=== PATIENT | female | born 1995 | race Caucasian/White ===

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

== ENCOUNTER 2017-01-21 14:39 | Emergency (ER) | payer MEDICAID ==
[~2017-01-21] VITALS: Ht 162.6 cm; Wt 58.0 kg
[~2017-01-21 14:39] MED LIST changes: -BACT800T5 PO; -CIPR-9 PO; -IBUP-232 PO; +OSEL75 PO; -TRAM50TA PO
[2017-01-21 14:40] VITALS: BP 124/60; PULSE 82; RESP 20; TEMP 98.8; O2SAT 100
[2017-01-21 16:00] VITALS: BP 107/64; PULSE 75; RESP 16; O2SAT 100
--- NOTE | 2017-01-21 16:25 | PD ---
HPI Chief Complaint: Cover Cutter Problem/Complaint Time Seen by Provider: 16:09 Travel History International Travel<30 days: No Contact w/Intl Traveler<30days: No Traveled to known affect area: No History of Present Illness HPI 21-year-old female presents to the emergency department for evaluation of pelvic pain and dysuria 3 days. Patient denies fever or chills. LMP 9/7. Patient denies fever, chills, abdominal pain, nausea or vomiting, vaginal discharge, vaginal bleeding. Symptoms severity moderate, no aggravating or alleviating factors. Pain severity 6/10. PFSH Past Medical History Medical History: Denies Significant Hx Hx Anticoagulant Therapy: No Diabetes: No Diminished Hearing: No Genitourinary: Yes (UTI) Immunizations Current: Yes Tetanus Vaccination: Unknown Influenza Vaccination: No (UNKNOWN) ?: Not LMP: 01/12/17 : 0 Para: 0 Miscarriage: 0 : 0 Past Surgical History Surgical History: No Previous Surgery Social History Alcohol Use: No Tobacco Use: No Substance Use: No Allergies-Medications (Allergen,Severity, Reaction): Coded Allergies: No Known Allergies (Unverified , 01/21/17) Reported Meds & Prescriptions Reported Meds & Active Scripts Active No Active Prescriptions or Reported Medications Review of Systems Except as stated in HPI: all other systems reviewed are Neg Physical Exam Narrative GENERAL: Well-nourished, well-developed patient. SKIN: Focused skin assessment warm/dry. HEAD: Normocephalic. EYES: No scleral icterus. No injection or drainage. NECK: Supple, trachea midline. No JVD or lymphadenopathy. CARDIOVASCULAR: Regular rate and rhythm without murmurs, gallops, or rubs. RESPIRATORY: Breath sounds equal bilaterally. No accessory muscle use. GASTROINTESTINAL: Positive suprapubic tenderness .Abdomen soft, nondistended. MUSCULOSKELETAL: No cyanosis, or edema. GENITOURINARY: External genitalia without lesions. Moderate amount of whitish yellow discharge within the vaginal vault. Cervix is friable. Cervical os closed. Cervical motion tenderness. No adnexal mass or tenderness. BACK: Nontender without obvious deformity. No CVA tenderness. Data Data Last Documented VS Vital Signs Date Time Temp Pulse Resp B/P (MAP) Pulse Ox O2 Delivery O2 Flow Rate FiO2 01/21/17 16:00 75 16 107/64 (78) 100 Room Air 01/21/17 14:40 98.8 Orders Orders Ed Urine Pregnancytest Poc (01/21/17 16:10) Urinalysis - C+S If Indicated (01/21/17 16:11) Gc And Chlamydia Pcr (01/21/17 16:20) Wet Prep Profile (01/21/17 16:20) Azithromycin Powd Pack (Zithromax Powd P (01/21/17 18:00) Rocephin 250mg Vial Im X 1 (01/21/17 18:00) Lidocaine 1% Inj (50 Ml) (Xylocaine 1% I (01/21/17 18:00) Labs Laboratory Tests Test 01/21/17 16:20 Urine Color YELLOW Urine Turbidity HAZY Urine pH 7.0 Urine Specific [place] 1.014 Urine Protein NEG mg/dL Urine Glucose (UA) NEG mg/dL Urine Ketones NEG mg/dL Urine Occult Blood NEG Urine Nitrite NEG Urine Bilirubin NEG Urine Urobilinogen LESS THAN 2.0 MG/DL Urine Leukocyte Esterase NEG Urine RBC 2 /hpf Urine WBC 1 /hpf Urine Squamous Epithelial Cells 2 /hpf Urine Amorphous Sediment RARE Microscopic Urinalysis Comment CULT NOT INDICATED Clue Cells (Wet Prep) NONE SEEN Vaginal Trichomonas (Wet Prep) NONE SEEN Vaginal Yeast (Wet Prep) NONE SEEN MDM Medical Decision Making Medical Screen Exam Complete: Yes Emergency Medical Condition: Yes Differential Diagnosis UTI, cervicitis, PID Narrative Course 21-year-old female since emergency department for evaluation of vaginal discomfort 3 days. Patient reports similar symptoms in the past with UTI. Patient denies fever, chills, abdominal pain. Patient is a sexually active with one partner and does not use protection. On exam patient has moderate amount of discharge in vaginal vault, cervical friability, and cervical motion tenderness. UA: Negative for infection Wet prep: Negative for Trichomonas, negative for clue cells, negative for yeast GC chlamydia: Pending Patient be treated for cervicitis. Return precautions discussed. Patient verbalizes understanding and agrees to plan. Diagnosis Primary Impression: Cervicitis Referrals: Primary Care Physician Additional Instructions: Take medication as prescribed. 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 Return to emergency department if he developed new or worsening symptoms. Scripts No Active Prescriptions or Reported Meds Disposition: 01 DISCHARGE HOME Condition: Stable Madison Sue Jan 21, 2017 16:25
[2017-01-21 17:02] LABS: BLOOD, URINE NEG (NEG); COMMENT (UR) CULT NOT INDICATED; CULTURE IF INDICATED CULT NOT INDICATED; GLUCOSE,URINE NEG (NEG); KETONE, URINE NEG (NEG); NITRITE,URINE NEG (NEG); SQUAMOUS EPITHELIAL CELL URINE 2 /hpf (0-5); URINE COLOR YELLOW (YELLW/STRAW)
[2017-01-21] MEDS ORDERED: cefTRIAXone 250 MG VIAL IM ONE (18:00)
[2017-01-21] MEDS ORDERED: LIDOCAINE HCL 1% 50 ML VIAL IM ONE (18:00)
[2017-01-21] MEDS ORDERED: AZITHROMYCIN PWD FOR SUSP 1 GM PACKET PO ONE (18:00)
[2017-01-21 19:13] LABS: CHLAMYDIA PCR NOT DETECTED (NOT DETECT); NEISSERIA PCR NOT DETECTED (NOT DETECT)
== END 2017-01-21 19:07 | disposition home or self-care (01) ==
LOC: NEPD 14:39
DX: N72 Inflammatory disease of cervix uteri (principal)
CPT/HCPCS: 81001; 84703; 87210; 87491; 87591; 96372; 99284; J0696

== ENCOUNTER 2017-04-05 03:47 | Emergency (ER) | payer MEDICAID, OTHER ==
[~2017-04-05] VITALS: Ht 160 cm; Wt 58.0 kg
[2017-04-05] MEDS ORDERED: IOHEXOL 350 MG/ML 10 ML VIAL (for RAD DIAG) IVCONTRAST ONE (03:48)
[2017-04-05 03:49] VITALS: BP 121/66; PULSE 104; RESP 16; TEMP 98.4; O2SAT 100
--- NOTE | 2017-04-05 04:29 | PD ---
HPI Chief Complaint: Abdominal Pain Time Seen by Provider: 04:15 Travel History International Travel<30 days: No Contact w/Intl Traveler<30days: No Traveled to known affect area: No History of Present Illness HPI The patient is a 21 year old female who presents to the [facility] emergency department with a history of lower abdominal pain that awoke from her sound sleep at 3AM. It is coming and going. It is sharp and dull in character. She has had nausea without vomiting. Her last BM was yesterday. On review of systems otherwise, the patient denies having any recent fevers, cough, congestion, neck pain, chest pain, shortness of breath, diarrhea, urinary symptoms, or neurologic symptoms. 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 PFSH Past Medical History Narrative Medical The patient's past medical history is reportedly None. Hx Anticoagulant Therapy: No Diabetes: No Diminished Hearing: No Genitourinary: Yes (UTI) Immunizations Current: Yes Tetanus Vaccination: Unknown Influenza Vaccination: No ?: Unknown : 0 Para: 0 Miscarriage: 0 : 0 Past Surgical History Narrative Surgical The patient's past surgical history is reportedly None. Social History Alcohol Use: No Tobacco Use: No Substance Use: No Allergies-Medications (Allergen,Severity, Reaction): Coded Allergies: No Known Allergies (Unverified Adverse Reaction, Unknown, 04/05/17) Reported Meds & Prescriptions Reported Meds & Active Scripts Active Ibuprofen 600 Mg Tab 600 Mg PO Q6H PRN Review of Systems Except as stated in HPI: all other systems reviewed are Neg General / Constitutional: No: Fever Eyes: No: Visual changes HENT: No: Headaches Cardiovascular: No: Chest Pain or Discomfort Respiratory: No: Shortness of Breath Gastrointestinal: Positive: Nausea, Abdominal Pain, No: Vomiting, Diarrhea, Changes in Bowel Habits, Indigestion, Loss of Appetite Genitourinary: No: Dysuria Musculoskeletal: No: Pain Skin: No Rash Neurologic: No: Weakness Psychiatric: No: Depression Endocrine: No: Polydipsia Hematologic/Lymphatic: No: Easy Bruising Physical Exam Narrative General: The patient is a well-developed well-nourished female in no acute distress Head and Neck exam: Head is normocephalic atraumatic. Eyes: EOMI, pupils are equal round and reactive to light. Nose: Midline septum with pink mucous membranes Mouth: Dentition unremarkable. Moist mucus membranes. Posterior oropharynx is not erythematous. No tonsillar hypertrophy. Uvula midline. Airway patent. Neck: No palpable lymphadenopathy. No nuchal rigidity. No thyromegaly. Cardiovascular: Regular rate and rhythm without murmurs, gallops, or rubs. Lungs: Clear to auscultation bilaterally. No wheezes, rhonchi, or rales. Abdomen: Soft, with tenderness on palpation of bilateral lower quadrants of the abdomen, worse in the right lower quadrant compared to the left. No guarding, rebound, or rigidity. Normal bowel sounds are audible. The patient does have tenderness on palpation of McBurney's point. Negative Montilla's sign. Extremities: No clubbing, cyanosis, or edema. 2+ pulses in all 4 extremities. No calf tenderness on palpation. Back: No spinous process tenderness to palpation. No costovertebral angle tenderness to palpation. Neurologic Exam: Grossly normal. Skin Exam: No rash noted. Intact skin that is warm and dry. Data Data Last Documented VS Vital Signs Date Time Temp Pulse Resp B/P (MAP) Pulse Ox O2 Delivery O2 Flow Rate FiO2 04/05/17 09:29 80 18 124/76 (92) 97 04/05/17 03:49 98.4 Room Air Orders Orders Complete Blood Count With Diff (04/05/17 04:47) Comprehensive Metabolic Panel (04/05/17 04:47) C-Reactive Protein (Crp) (04/05/17 04:47) Lipase (04/05/17 04:47) Urinalysis - C+S If Indicated (04/05/17 04:47) Iv Access Insert/Monitor (04/05/17 04:47) Ecg Monitoring (04/05/17 04:47) Oximetry (04/05/17 04:47) Ed Urine Pregnancytest Poc (04/05/17 04:47) Sodium Chlor 0.9% 1000 Ml Inj (Ns 1000 M (04/05/17 05:00) Ondansetron Inj (Zofran Inj) (04/05/17 05:00) Ketorolac Inj (Toradol Inj) (04/05/17 05:00) Ct Abd/Pel W Iv Contrast(Rout) (04/05/17 05:30) Oral Contrast - Adult (04/05/17 06:55) Diatrizoate Liq (Md Rainey Liq) (04/05/17 07:22) Iohexol 350 Inj (Omnipaque 350 Inj) (04/05/17 03:48) Ed Discharge Order (04/05/17 09:03) Labs Laboratory Tests Test 04/05/17 04:40 White Blood Count 6.5 TH/MM3 Red Blood Count 5.01 MIL/MM3 Hemoglobin 14.6 GM/DL Hematocrit 43.2 % Mean Corpuscular Volume 86.2 FL Mean Corpuscular Hemoglobin 29.1 PG Mean Corpuscular Hemoglobin Concent 33.7 % Red Cell Distribution Width 13.5 % Platelet Count 283 TH/MM3 Mean Platelet Volume 8.7 FL Neutrophils (%) (Auto) 47.6 % Lymphocytes (%) (Auto) 34.8 % Monocytes (%) (Auto) 12.7 % Eosinophils (%) (Auto) 4.2 % Basophils (%) (Auto) 0.7 % Neutrophils # (Auto) 3.1 TH/MM3 Lymphocytes # (Auto) 2.3 TH/MM3 Monocytes # (Auto) 0.8 TH/MM3 Eosinophils # (Auto) 0.3 TH/MM3 Basophils # (Auto) 0.0 TH/MM3 CBC Comment DIFF FINAL Differential Comment Urine Color YELLOW Urine Turbidity HAZY Urine pH 6.0 Urine Specific [place] 1.026 Urine Protein TRACE mg/dL Urine Glucose (UA) NEG mg/dL Urine Ketones NEG mg/dL Urine Occult Blood NEG Urine Nitrite NEG Urine Bilirubin NEG Urine Urobilinogen LESS THAN 2.0 MG/DL Urine Leukocyte Esterase TRACE Urine RBC 2 /hpf Urine WBC 1 /hpf Urine Squamous Epithelial Cells 8 /hpf Urine Bacteria RARE /hpf Urine Mucus MOD /lpf Microscopic Urinalysis Comment CULT NOT INDICATED Blood Urea Nitrogen 10 MG/DL Creatinine 0.61 MG/DL Random Glucose 84 MG/DL Total Protein 8.0 GM/DL Albumin 4.3 GM/DL Calcium Level 9.0 MG/DL Alkaline Phosphatase 89 U/L Aspartate Amino Transf (AST/SGOT) 25 U/L Alanine Aminotransferase (ALT/SGPT) 26 U/L Total Bilirubin 0.4 MG/DL Sodium Level 138 MEQ/L Potassium Level 3.8 MEQ/L Chloride Level 104 MEQ/L Carbon Dioxide Level 26.2 MEQ/L Anion Gap 8 MEQ/L Estimat Glomerular Filtration Rate 126 ML/MIN C-Reactive Protein 0.49 MG/DL Lipase 191 U/L [facility] Medical Decision Making Medical Screen Exam Complete: Yes Emergency Medical Condition: Yes Medical Record Reviewed: Yes Interpretation(s) Last Impressions Abdomen/Pelvis CT 04/05/17 0530 Signed Impressions: Service Date/Time: Wednesday, April 05, 2017 08:26 - CONCLUSION: 1. 1.8 cm left ovarian cyst with trace amount of fluid within the cul-de-sac. Jabari Bhakta Jr., MD Differential Diagnosis Appendicitis, versus ovarian cyst, versus urinary tract infection, versus ectopic Narrative Course During the course of the patients emergency department visit, the patients history, examination, and differential diagnosis were reviewed with the patient. The patient was placed on a dental technician with oximetry and frequent blood pressure monitoring. The patient had IV access obtained and blood work sent for analysis. A bedside test was negative The patient was initially provided normal saline IV fluids, Toradol for pain, Zofran for nausea. The patients laboratory studies were reviewed and remarkable for white count of 6.5, hemoglobin 14.6, platelets 283 with monocytes 12.7, eosinophils 4.2. CMP is remarkable for C-reactive protein 0.49, lipase 191, urinalysis shows trace leukocyte esterase, rare bacteria, culture not indicated. The patient's case was checked out to the oncoming emergency physician to disposition the patient based on the conclusion of the patient's workup. The patient's CT scan of the abdomen and pelvis is pending at the conclusion of my shift. Diagnosis Primary Impression: Abdominal pain Qualified Codes: R10.30 - Lower abdominal pain, unspecified Scripts Ibuprofen (Ibuprofen) 600 Mg Tab 600 MG PO Q6H Y for PAIN, #20 TAB 0 Refills Prov: Cat Bentley MD 04/05/17 Marylou Islas MD Apr 05, 2017 04:29
[2017-04-05] MEDS ORDERED: SODIUM CHLOR 0.9% 1000 ML INJ 1,000 ML IV ONE (05:00)
[2017-04-05] MEDS ORDERED: KETOROLAC TROMETHAMINE 30 MG/ML (IVP) VIAL IV PUSH ONE (05:00)
[2017-04-05] MEDS ORDERED: ONDANSETRON HCL 4 MG/2 ML VIAL IV ONE (05:00)
[2017-04-05 05:07] LABS: BACTERIA, URINE RARE /hpf; BLOOD, URINE NEG (NEG); COMMENT (UR) CULT NOT INDICATED; CULTURE IF INDICATED CULT NOT INDICATED; GLUCOSE,URINE NEG (NEG); KETONE, URINE NEG (NEG); MUCUS URINE MOD /lpf (OCC); NITRITE,URINE NEG (NEG); SQUAMOUS EPITHELIAL CELL URINE 8 /hpf (0-5); URINE COLOR YELLOW (YELLW/STRAW)
[2017-04-05 05:09] LABS: AUTOMATED NEUTROPHIL # 3.1 TH/MM3 (1.8-7.7); BASOPHIL % 0.7 % (0.0-2.0); EOSINOPHIL # 0.3 TH/MM3 (0-0.4); EOSINOPHIL % 4.2 % (0.0-4.0); HEMATOCRIT 43.2 % (35.0-46.0); HEMO FLAGS DIFF FINAL; LYMPH % 34.8 % (9.0-44.0); LYMPHOCYTE # 2.3 TH/MM3 (1.0-4.8); MEAN CELL VOLUME 86.2 FL (80.0-100.0); MEAN CORPUSCULAR HEMOGLOBIN 29.1 PG (27.0-34.0); MEAN CORPUSCULAR HGB CONC 33.7 % (32.0-36.0); MONO % 12.7 % (0.0-8.0); NEUT % 47.6 % (16.0-70.0); PLATELET COUNT 283 TH/MM3 (150-450); RED BLOOD COUNT 5.01 MIL/MM3 (4.00-5.30); RED CELL DISTRIBUTION WIDTH 13.5 % (11.6-17.2); WHITE BLOOD COUNT 6.5 TH/MM3 (4.0-11.0)
[2017-04-05 05:19] LABS: ALKALINE PHOSPHATASE 89 U/L (45-117); TOTAL BILIRUBIN ADULT 0.4 MG/DL (0.2-1.0)
[2017-04-05 05:24] LABS: ALT (GPT) 26 U/L (9-42); ANION GAP 8 MEQ/L (5-15); AST (GOT) 25 U/L (16-38); BICARBONATE 26.2 MEQ/L (21.0-32.0); BLOOD UREA NITROGEN 10 MG/DL (7-18); CHLORIDE 104 MEQ/L (98-107); GLOMERULAR FILTRATION RATE 126 ML/MIN (>89); POTASSIUM 3.8 MEQ/L (3.5-5.1); SODIUM (NA) 138 MEQ/L (136-145)
[2017-04-05] MEDS ORDERED: DIATRIZOATE MEGLUM/DIATRIZOATE SOD 9 ML CUP ONE (07:22)
[2017-04-05 07:31] VITALS: RESP 18
--- NOTE | 2017-04-05 08:39 | RADRPT ---
EXAM DATE/TIME: 04/05/2017 08:26 [place] COMPARISON: No previous studies available for comparison. INDICATIONS : Lower pelvic pain IV CONTRAST: 70 cc Omnipaque 350 (iohexol) IV ORAL CONTRAST: Prescribed oral contrast ingested. RADIATION DOSE: 5.25 CTDIvol (mGy) MEDICAL HISTORY : None SURGICAL HISTORY : None. ENCOUNTER: Initial ACUITY: 1 day PAIN SCALE: 10/10 LOCATION: Bilateral lower quadrant TECHNIQUE: Volumetric scanning of the abdomen and pelvis was performed. Using automated exposure control and ad justment of the mA and/or kV according to patient size, radiation dose was kept as low as reasonably achievable to obtain optimal diagnostic quality images. DICOM format image data is available electro nically for review and comparison. FINDINGS: LOWER LUNGS: The visualized lower lungs are clear. LIVER: Homogeneous density without lesion. There is no dilation of the biliary tree. No calcified gallston es. SPLEEN: Normal size without lesion. PANCREAS: Within normal limits. KIDNEYS: Normal in size and shape. There is no mass, stone or hydronephrosis. ADRENAL GLANDS: Within normal limits. VASCULAR: There is no aortic aneurysm. BOWEL/MESENTERY: The stomach, small bowel, and colon demonstrate no acute abnormality. There is no free intraperitone al air or fluid. ABDOMINAL WALL: Within normal limits. RETROPERITONEUM: There is no lymphadenopathy. BLADDER: No wall thickening or mass. REPRODUCTIVE: There is a 1.8 cm cyst involving the left adnexa. Hounsfield units are -8. Trace amount of free fluid within the cul-de-sac. Uterus is within the midline. INGUINAL: There is no lymphadenopathy or hernia. MUSCULOSKELETAL: Within normal limits for patient age. CONCLUSION: 1. 1.8 cm left ovarian cyst with trace amount of fluid within the cul-de-sac. Jabari Bhakta Jr., MD on April 05, 2017 at 8:34 Board Certified Radiologist. This report was verified electronically.
--- NOTE | 2017-04-05 09:00 | PD ---
Physical Exam Date Seen by Provider: Apr 05, 2017 Time Seen by Provider: 07:00 Narrative Patient was signed out to me by Dr. Islas at 7 AM, please see previous notes for further details. Labwork and CAT scan shows no signs of acute processes. Laboratory Tests Test 04/05/17 04:40 Monocytes (%) (Auto) 12.7 % (0.0-8.0) Eosinophils (%) (Auto) 4.2 % (0.0-4.0) Urine Turbidity HAZY (CLEAR) Urine Leukocyte Esterase TRACE (NEG) Urine Bacteria RARE /hpf (NONE) Urine Mucus MOD /lpf (OCC) C-Reactive Protein 0.49 MG/DL (0.00-0.30) Labwork and CAT scan did not show any signs of acute processes and my plan would be to release her with follow-up to primary care doctor. Return for any worsening in symptoms as needed. The plan has been discussed with the patient and she states understanding. Data Data Last Documented VS Vital Signs Date Time Temp Pulse Resp B/P (MAP) Pulse Ox O2 Delivery O2 Flow Rate FiO2 04/05/17 07:31 18 04/05/17 03:49 98.4 104 121/66 (84) 100 Room Air Orders Orders Complete Blood Count With Diff (04/05/17 04:47) Comprehensive Metabolic Panel (04/05/17 04:47) C-Reactive Protein (Crp) (04/05/17 04:47) Lipase (04/05/17 04:47) Urinalysis - C+S If Indicated (04/05/17 04:47) Iv Access Insert/Monitor (04/05/17 04:47) Ecg Monitoring (04/05/17 04:47) Oximetry (04/05/17 04:47) Ed Urine Pregnancytest Poc (04/05/17 04:47) Sodium Chlor 0.9% 1000 Ml Inj (Ns 1000 M (04/05/17 05:00) Ondansetron Inj (Zofran Inj) (04/05/17 05:00) Ketorolac Inj (Toradol Inj) (04/05/17 05:00) Ct Abd/Pel W Iv Contrast(Rout) (04/05/17 05:30) Oral Contrast - Adult (04/05/17 06:55) Diatrizoate Liq ( Gastro[place] Liq) (04/05/17 07:22) Iohexol 350 Inj (Omnipaque 350 Inj) (04/05/17 03:48) Labs Laboratory Tests Test 04/05/17 04:40 White Blood Count 6.5 TH/MM3 Red Blood Count 5.01 MIL/MM3 Hemoglobin 14.6 GM/DL Hematocrit 43.2 % Mean Corpuscular Volume 86.2 FL Mean Corpuscular Hemoglobin 29.1 PG Mean Corpuscular Hemoglobin Concent 33.7 % Red Cell Distribution Width 13.5 % Platelet Count 283 TH/MM3 Mean Platelet Volume 8.7 FL Neutrophils (%) (Auto) 47.6 % Lymphocytes (%) (Auto) 34.8 % Monocytes (%) (Auto) 12.7 % Eosinophils (%) (Auto) 4.2 % Basophils (%) (Auto) 0.7 % Neutrophils # (Auto) 3.1 TH/MM3 Lymphocytes # (Auto) 2.3 TH/MM3 Monocytes # (Auto) 0.8 TH/MM3 Eosinophils # (Auto) 0.3 TH/MM3 Basophils # (Auto) 0.0 TH/MM3 CBC Comment DIFF FINAL Differential Comment Urine Color YELLOW Urine Turbidity HAZY Urine pH 6.0 Urine Specific [place] 1.026 Urine Protein TRACE mg/dL Urine Glucose (UA) NEG mg/dL Urine Ketones NEG mg/dL Urine Occult Blood NEG Urine Nitrite NEG Urine Bilirubin NEG Urine Urobilinogen LESS THAN 2.0 MG/DL Urine Leukocyte Esterase TRACE Urine RBC 2 /hpf Urine WBC 1 /hpf Urine Squamous Epithelial Cells 8 /hpf Urine Bacteria RARE /hpf Urine Mucus MOD /lpf Microscopic Urinalysis Comment CULT NOT INDICATED Blood Urea Nitrogen 10 MG/DL Creatinine 0.61 MG/DL Random Glucose 84 MG/DL Total Protein 8.0 GM/DL Albumin 4.3 GM/DL Calcium Level 9.0 MG/DL Alkaline Phosphatase 89 U/L Aspartate Amino Transf (AST/SGOT) 25 U/L Alanine Aminotransferase (ALT/SGPT) 26 U/L Total Bilirubin 0.4 MG/DL Sodium Level 138 MEQ/L Potassium Level 3.8 MEQ/L Chloride Level 104 MEQ/L Carbon Dioxide Level 26.2 MEQ/L Anion Gap 8 MEQ/L Estimat Glomerular Filtration Rate 126 ML/MIN C-Reactive Protein 0.49 MG/DL Lipase 191 U/L [facility] Medical Record Reviewed: Yes Supervised Visit with GREGORIO: No Diagnosis Primary Impression: Abdominal pain Qualified Codes: R10.30 - Lower abdominal pain, unspecified Additional Impression: Ovarian cyst Med/Other Pt SpecificInfo: Prescription(s) given Scripts Ibuprofen (Ibuprofen) 600 Mg Tab 600 MG PO Q6H Y for PAIN, #20 TAB 0 Refills Prov: Cat Bentley MD 04/05/17 Disposition: 01 DISCHARGE HOME Condition: Stable Cat Bentley MD Apr 05, 2017 09:00
[2017-04-05] MEDS ORDERED: IBUP-232 PO (09:02)
[2017-04-05 09:29] VITALS: BP 124/76
== END 2017-04-05 09:31 | disposition home or self-care (01) ==
LOC: NEPC 03:47
DX: N83.202 Unspecified ovarian cyst, left side (principal)
CPT/HCPCS: 74177; 80053; 81001; 83690; 84703; 85025; 86140; 96361; 96374; 96375; 99285; J1885; J2405; J7030; Q9963; Q9967